=== PATIENT | female | born 1940 | race Hispanic/Latino ===

== ENCOUNTER 2017-12-23 20:45 | Inpatient (IN) | payer MEDICARE ==
[~2017-12-23] VITALS: Ht 157.5 cm; Wt 79.0 kg
[~2017-12-23 20:45] MED LIST: ATOR40TA71 PO; ESCI20TA36 PO; GABA-529 PO; IBUP-2070 PO; LEVO250T2 PO; LORA2TAB2 PO; METF10004 PO; METO50TA18 PO; NAPR-1023 PO; NITR0.4T SL; VALS160T29 PO; [UNRECOGNIZED DRUG - OTHER] IH
[2017-12-23 21:15] LABS: BASOPHILS % (AUTO) 0.9 % (0.0-5.0); EOSINOPHILS % (AUTO) 10.6 % (0.0-8.0); HEMATOCRIT 39.1 % (36-48); LYMPHOCYTES % (AUTO) 11.8 % (21.0-51.0); MEAN CORPUSCULAR HEMOGLOBIN 30.2 pg (27.0-33.0); MEAN CORPUSCULAR HGB CONC 33.9 g/dL (32.0-36.0); MONOCYTES % (AUTO) 4.3 % (3.0-13.0); NEUTROPHILS % (AUTO) 72.4 % (40.0-77.0); PLATELET COUNT (AUTO) 198 K/uL (130-400); RED BLOOD CELL COUNT(AUTO) 4.39 MIL/uL (4.00-5.50); RED CELL DISTRIBUTION WIDTH 14.6 % (11.0-15.5); WHITE BLOOD COUNT (AUTO) 11.7 K/uL (4.8-10.8)
[2017-12-23 21:18] LABS: APPEARANCE,URINE Clear (CLEAR); BILIRUBIN,URINE Negative (NEGATIVE); COLOR,URINE Yellow (YELLOW); GLUCOSE, URINE (UA) 250 mg/dL (NEGATIVE); KETONES,URINE Negative (NEGATIVE); LEUKOCYTE ESTERASE ,URINE Negative (NEGATIVE); NITRATE,URINE Negative (NEGATIVE); OCCULT BLOOD,URINE Negative (NEGATIVE); PROTEIN,URINE Negative (NEGATIVE); UROBILINOGEN,URINE 0.2 mg/dL (0.2-1.0)
[2017-12-23 21:18] LABS: CARBON DIOXIDE 24 mmol/L (21-32); CHLORIDE 102 mmol/L (101-111); CREATININE 0.9 mg/dL (0.5-1.5); GLOMERULAR FILTR. RATE CALC 65 mL/min (>60); GLUCOSE,RANDOM 330 mg/dL (70-105); POTASSIUM 4.3 mmol/L (3.5-5.1); SODIUM SERUM 139 mmol/L (136-145); UREA NITROGEN, BLOOD 9 mg/dL (7-18)
[2017-12-23 21:25] LABS: BACTERIA,URINE None Seen /HPF (None Seen); RBC,URINE None Seen /HPF (0-1); WBC,URINE None Seen /HPF (0-1)
[2017-12-23 21:26] LABS: INR 0.94 (0.85-1.15); PARTIAL THROMBOPLASTIN TIME 29.4 SEC (26.3-35.5); PROTHROMBIN TIME 9.9 SEC (9.6-11.6)
[2017-12-23] MEDS ORDERED: CEFTRIAXONE SODIUM 1 GM ONE (21:27)
[2017-12-23] MEDS ORDERED: SODIUM CHLORIDE 0.9% 50 ML IV ONE (21:27)
[2017-12-23] MEDS ORDERED: ACETAMINOPHEN 325 MG TAB ONE (21:30)
[2017-12-23] MEDS ORDERED: AZITHROMYCIN 250 MG TABLET PO ONE (21:30)
[2017-12-23 21:32] LABS: ALANINE AMINOTRANSFERASE 24 U/L (12-78); ALBUMIN 3.3 g/dL (3.5-5.0); ASPARTATE AMINOTRANSFERASE 23 U/L (10-37); BILIRUBIN,TOTAL 0.3 mg/dL (0.2-1.0); CREATINE KINASE MB 0.5 ng/mL (0.5-3.6); CREATINE KINASE, TOTAL 39 U/L (21-232); MYOGLOBIN 36 ng/mL (10-92); TROPONIN I < 0.04 ng/mL (0.00-0.06)
[2017-12-24] MEDS ORDERED: ALBUTEROL SULFATE 0.083% 2.5 MG/3 ML INH IH ONE (00:04)
[2017-12-24] MEDS ORDERED: METHYLPREDNISOLONE SOD SUCC 125MG/2ML VIAL ONE (00:08)
[2017-12-24] MEDS ORDERED: SODIUM CHLORIDE 0.9% 1000ML 1,000 ML IV ONE (02:35)
[2017-12-24] MEDS ORDERED: ENOXAPARIN SODIUM 40 MG/0.4 ML SYRINGE SQ ONE (02:35)
[2017-12-24] MEDS ORDERED: ZOSYN 3.375GM+NS 50ML 50 ML IV ONE (02:36)
[2017-12-24] MEDS ORDERED: VANCOMYCIN 1GM+NS 250ML 250 ML IV ONE (02:36)
[2017-12-24 04:48] VITALS: BP 132/71
[2017-12-24 05:00] LABS: CREATINE KINASE, TOTAL 35 U/L (21-232); MYOGLOBIN 33 ng/mL (10-92)
[2017-12-24] MEDS: SODIUM CHLORIDE 0.9% 1000ML 1,000 ML IV SCH (05:45)
[2017-12-24] MEDS ORDERED: GUAIFENESIN-CODEINE 5 ML SYRUP PO PRN (05:45)
[2017-12-24] MEDS ORDERED: DEXTROSE 50%-WATER 50 ML DISP.SYRIN IV PRN (05:45)
[2017-12-24] MEDS ORDERED: GLUCAGON 1MG KIT 1 MG ML IM PRN (05:45)
[2017-12-24] MEDS ORDERED: VANCOMYCIN PROTOCOL PER PHARMACY IV SCH (05:45)
[2017-12-24] MEDS: ZOSYN 3.375GM+NS 50ML 50 ML IV SCH ×3 (05:56→22:08)
[2017-12-24] MEDS ORDERED: VANCOMYCIN 1GM+NS 250ML 250 ML IV SCH (06:00)
[2017-12-24] MEDS: IPRATROPIUM/ALBUTEROL SULFATE 3 ML SOLUTION IH SCH ×5 (06:13→21:47)
[2017-12-24] MEDS: BUDESONIDE 0.5 MG/2 ML INH IH SCH ×2 (06:13→18:55)
[2017-12-24 06:17] LABS: BASOPHILS % (AUTO) 0.7 % (0.0-5.0); EOSINOPHILS % (AUTO) 1.3 % (0.0-8.0); HEMATOCRIT 37.6 % (36-48); LYMPHOCYTES % (AUTO) 15.1 % (21.0-51.0); MEAN CORPUSCULAR HGB CONC 33.5 g/dL (32.0-36.0); MEAN CORPUSCULAR VOLUME 89.7 fL (79-99); MONOCYTES % (AUTO) 1.1 % (3.0-13.0); NEUTROPHILS % (AUTO) 81.8 % (40.0-77.0); NUCLEATED RED BLOOD CELLS 0.1 % (0.0-0.19); PLATELET COUNT (AUTO) 194 K/uL (130-400); RED BLOOD CELL COUNT(AUTO) 4.19 MIL/uL (4.00-5.50); RED CELL DISTRIBUTION WIDTH 14.5 % (11.0-15.5); WHITE BLOOD COUNT (AUTO) 7.3 K/uL (4.8-10.8)
[2017-12-24] MEDS: INSULIN R PO SS1 SQ SCH ×4 (06:20→21:54)
[2017-12-24] MEDS ORDERED: COMPOUND IV REFRIGERATED 1 EACH IVSOLN MISC PRN (06:30)
[2017-12-24 06:34] LABS: CREATININE 0.9 mg/dL (0.5-1.5); POTASSIUM 4.4 mmol/L (3.5-5.1)
[2017-12-24 08:00] VITALS: BP 140/72
[2017-12-24] MEDS: VANCOMYCIN 1.25 GM in SODIUM CHLORIDE 0.9% 250 ML IV SCH (09:12)
[2017-12-24] MEDS: METHYLPREDNISOLONE SOD SUCC 125MG/2ML VIAL IVP SCH ×2 (09:13→21:48)
[2017-12-24] MEDS: PANTOPRAZOLE SODIUM 40 MG TABLET.DR PO SCH (09:13)
[2017-12-24] MEDS: ENOXAPARIN SODIUM 40 MG/0.4 ML SYRINGE SQ SCH (09:14)
[2017-12-24] MEDS ORDERED: LEVO25TA54 PO (09:31)
[2017-12-24] MEDS ORDERED: RANI150C4 PO (09:31)
[2017-12-24] MEDS ORDERED: DONE10TA43 PO (09:31)
[2017-12-24] MEDS ORDERED: NITR100C9 PO (09:31)
[2017-12-24] MEDS ORDERED: PROM5SYR PO (09:32)
[2017-12-24] MEDS ORDERED: GLIP5TAB11 PO (09:33)
[2017-12-24] MEDS ORDERED: IOHEXOL-350 75 ML VIAL IV ONE (10:09)
[2017-12-24 11:00] VITALS: BP 162/79
[2017-12-24 11:15] LABS: CREATINE KINASE MB < 0.5 ng/mL (0.5-3.6); CREATINE KINASE, TOTAL 39 U/L (21-232); MYOGLOBIN 28 ng/mL (10-92); TROPONIN I < 0.04 ng/mL (0.00-0.06)
[2017-12-24 16:00] VITALS: BP 141/62
[2017-12-24] MEDS: ACETAMINOPHEN 325 MG TAB PO PRN (17:41)
[2017-12-24 20:00] VITALS: BP 136/71
[2017-12-25] VITALS: BP 148/72
[2017-12-25] MEDS: IPRATROPIUM/ALBUTEROL SULFATE 3 ML SOLUTION IH SCH ×6 (02:55→21:24)
[2017-12-25] MEDS: SODIUM CHLORIDE 0.9% 1000ML 1,000 ML IV SCH (03:17)
[2017-12-25] MEDS: PANTOPRAZOLE SODIUM 40 MG TABLET.DR PO SCH (03:17)
[2017-12-25] MEDS: ACETAMINOPHEN 325 MG TAB PO PRN (03:18)
[2017-12-25 04:00] VITALS: BP 143/67
[2017-12-25 05:19] LABS: HEMATOCRIT 33.7 % (36-48); MEAN CORPUSCULAR HGB CONC 34.8 g/dL (32.0-36.0); MEAN CORPUSCULAR VOLUME 88.9 fL (79-99); PLATELET COUNT (AUTO) 187 K/uL (130-400); RED BLOOD CELL COUNT(AUTO) 3.79 MIL/uL (4.00-5.50); RED CELL DISTRIBUTION WIDTH 14.3 % (11.0-15.5); WHITE BLOOD COUNT (AUTO) 12.6 K/uL (4.8-10.8)
[2017-12-25 05:36] LABS: BAND NEUTROPHILS % (MANUAL) 2 % (0-2); LYMPHOCYTES % (MANUAL) 7 % (22-44); SEGMENTED NEUTROPHILS % 91 % (40-70)
[2017-12-25 05:37] LABS: MAN.DIFF COMMENT-IMPRESSION MANUAL DIFFERENTIAL; PLATELET MORPHOLOGY COMMENT ADEQUATE
[2017-12-25] MEDS: ZOSYN 3.375GM+NS 50ML 50 ML IV SCH ×3 (06:17→21:35)
[2017-12-25] MEDS: INSULIN R PO SS1 SQ SCH ×4 (06:22→21:42)
[2017-12-25] MEDS: BUDESONIDE 0.5 MG/2 ML INH IH SCH ×2 (06:43→17:23)
[2017-12-25 08:00] VITALS: BP 168/73
[2017-12-25 11:00] VITALS: BP 127/61
[2017-12-25] MEDS: METHYLPREDNISOLONE SOD SUCC 125MG/2ML VIAL IVP SCH ×2 (12:34→21:35)
[2017-12-25] MEDS: VANCOMYCIN 1.25 GM in SODIUM CHLORIDE 0.9% 250 ML IV SCH (12:34)
[2017-12-25] MEDS: ENOXAPARIN SODIUM 40 MG/0.4 ML SYRINGE SQ SCH (12:35)
[2017-12-25 16:00] VITALS: BP 141/73
[2017-12-25 20:00] VITALS: BP 149/79
[2017-12-26] VITALS: BP 151/76
[2017-12-26] MEDS: IPRATROPIUM/ALBUTEROL SULFATE 3 ML SOLUTION IH SCH ×6 (02:13→21:53)
[2017-12-26 04:00] VITALS: BP 148/76
[2017-12-26] MEDS: ZOSYN 3.375GM+NS 50ML 50 ML IV SCH ×3 (05:37→21:48)
[2017-12-26] MEDS: SODIUM CHLORIDE 0.9% 1000ML 1,000 ML IV SCH (05:41)
[2017-12-26] MEDS: BUDESONIDE 0.5 MG/2 ML INH IH SCH ×2 (05:59→19:12)
[2017-12-26] MEDS: INSULIN R PO SS1 SQ SCH ×4 (06:32→20:41)
[2017-12-26 07:30] VITALS: BP 162/81
[2017-12-26] MEDS: ENOXAPARIN SODIUM 40 MG/0.4 ML SYRINGE SQ SCH (08:59)
[2017-12-26] MEDS: VANCOMYCIN 1.25 GM in SODIUM CHLORIDE 0.9% 250 ML IV SCH (08:59)
[2017-12-26] MEDS: METHYLPREDNISOLONE SOD SUCC 125MG/2ML VIAL IVP SCH ×2 (09:00→20:08)
[2017-12-26] MEDS: PANTOPRAZOLE SODIUM 40 MG TABLET.DR PO SCH (09:00)
[2017-12-26 11:00] VITALS: BP 148/70
[2017-12-26] MEDS ORDERED: SODIUM CHLORIDE 3% FOR INHALATION 4 ML/AMP VIAL.NEB IH ONE (14:18)
[2017-12-26 16:00] VITALS: BP 161/77
[2017-12-26 20:00] VITALS: BP 174/84
[2017-12-26] MEDS ORDERED: [UNRECOGNIZED DRUG - OTHER] PO SCH (23:00)
[2017-12-26] MEDS ORDERED: PROMETHAZINE HCL PO SCH (23:00)
[2017-12-26] MEDS ORDERED: IBUPROFEN 600 MG TABLET PO PRN (23:00)
[2017-12-26] MEDS ORDERED: LORAZEPAM 0.5 MG TABLET PO PRN (23:00)
[2017-12-26] MEDS ORDERED: CODEINE PO SCH (23:00)
[2017-12-26] MEDS ORDERED: NITROGLYCERIN 0.4 MG SL TAB SL PRN (23:00)
[2017-12-27] VITALS: BP 157/91
[2017-12-27] MEDS: IPRATROPIUM/ALBUTEROL SULFATE 3 ML SOLUTION IH SCH ×6 (02:00→22:38)
[2017-12-27] MEDS: ZOSYN 3.375GM+NS 50ML 50 ML IV SCH ×3 (05:55→21:55)
[2017-12-27] MEDS: LEVOTHYROXINE 50 MCG TABLET PO SCH (05:56)
[2017-12-27] MEDS: BUDESONIDE 0.5 MG/2 ML INH IH SCH ×2 (06:06→17:53)
[2017-12-27] MEDS: INSULIN R PO SS1 SQ SCH ×4 (06:44→21:00)
[2017-12-27 08:30] VITALS: BP 167/82
[2017-12-27] MEDS: VALSARTAN 160 MG PO SCH (08:34)
[2017-12-27] MEDS: FAMOTIDINE 20MG TAB 20 MG TAB PO SCH (08:34)
[2017-12-27] MEDS: DONEPEZIL HCL 5 MG TAB PO SCH (10:14)
[2017-12-27] MEDS: GLIPIZIDE 5 MG TABLET PO SCH ×2 (10:14→16:17)
[2017-12-27] MEDS: LEVOFLOXACIN 750 MG TABLET PO SCH (10:15)
[2017-12-27] MEDS: PANTOPRAZOLE SODIUM 40 MG TABLET.DR PO SCH (10:15)
[2017-12-27] MEDS: METFORMIN HCL 500 MG TABLET PO SCH ×2 (10:15→16:17)
[2017-12-27] MEDS: METOPROLOL TARTRATE 50 MG TAB PO SCH ×2 (10:15→20:27)
[2017-12-27] MEDS: METHYLPREDNISOLONE SOD SUCC 125MG/2ML VIAL IVP SCH ×2 (10:15→20:26)
[2017-12-27] MEDS: ENOXAPARIN SODIUM 40 MG/0.4 ML SYRINGE SQ SCH (10:16)
[2017-12-27 12:00] VITALS: BP 170/79
[2017-12-27 16:00] VITALS: BP 152/82
[2017-12-27 19:52] VITALS: BP 174/88
[2017-12-27] MEDS ORDERED: ATORVASTATIN CALCIUM 40 MG TABLET PO SCH (21:00)
[2017-12-27] MEDS ORDERED: CITALOPRAM 20 MG TABLET PO SCH (21:00)
[2017-12-28 00:16] VITALS: BP 168/78
[2017-12-28] MEDS: IPRATROPIUM/ALBUTEROL SULFATE 3 ML SOLUTION IH SCH ×3 (02:16→10:46)
[2017-12-28 04:16] VITALS: BP 173/79
[2017-12-28] MEDS: ZOSYN 3.375GM+NS 50ML 50 ML IV SCH (05:55)
[2017-12-28] MEDS: LEVOTHYROXINE 50 MCG TABLET PO SCH (05:57)
[2017-12-28] MEDS: INSULIN R PO SS1 SQ SCH (06:31)
[2017-12-28] MEDS: BUDESONIDE 0.5 MG/2 ML INH IH SCH (07:25)
[2017-12-28 07:45] VITALS: BP 167/89
[2017-12-28] MEDS: VALSARTAN 160 MG PO SCH (09:00)
[2017-12-28] MEDS: FAMOTIDINE 20MG TAB 20 MG TAB PO SCH (09:11)
[2017-12-28] MEDS: DONEPEZIL HCL 5 MG TAB PO SCH (09:11)
[2017-12-28] MEDS: METOPROLOL TARTRATE 50 MG TAB PO SCH (09:11)
[2017-12-28] MEDS: METFORMIN HCL 500 MG TABLET PO SCH (09:11)
[2017-12-28] MEDS: GLIPIZIDE 5 MG TABLET PO SCH (09:11)
[2017-12-28] MEDS: LEVOFLOXACIN 750 MG TABLET PO SCH (09:11)
[2017-12-28] MEDS: METHYLPREDNISOLONE SOD SUCC 125MG/2ML VIAL IVP SCH (09:12)
[2017-12-28] MEDS: PANTOPRAZOLE SODIUM 40 MG TABLET.DR PO SCH (09:12)
[2017-12-28] MEDS: ENOXAPARIN SODIUM 40 MG/0.4 ML SYRINGE SQ SCH (09:13)
[2017-12-28] MEDS ORDERED: PRED20TA3 PO (11:46)
[2017-12-28] MEDS ORDERED: LEVO750T46 PO (11:46)
== END 2017-12-28 12:45 | disposition home or self-care (01) | DRG 190 ==
LOC: EDH 20:45 → EDHIP 12-24 01:11 → OBSVTOIN 12-24 01:11 → 4CH 12-24 04:40
PROVIDERS: ADMIT Internal Medicine; ATTEND Internal Medicine
DX: J44.0 Chronic obstructive pulmonary disease with (acute) lower respiratory infection (principal); J18.9 Pneumonia, unspecified organism; J20.9 Acute bronchitis, unspecified; J44.1 Chronic obstructive pulmonary disease with (acute) exacerbation; I10 Essential (primary) hypertension; J84.112 Idiopathic pulmonary fibrosis; E03.9 Hypothyroidism, unspecified; E11.9 Type 2 diabetes mellitus without complications; F32.9 Major depressive disorder, single episode, unspecified; Z99.81 Dependence on supplemental oxygen
CPT/HCPCS: 36415; 71045; 71260; 80048; 80053; 81001; 82550; 82553; 82948; 83605; 83874; 84484; 85025; 85610; 85730; 87040; 87071; 87088; 87186; 87205; 92610; 93005; 94640; 94664; 99291; J0696; J1650; J1815; J2543; J2930; J3370; J7030; Q9967

== ENCOUNTER 2018-04-28 14:00 | Emergency (ER) | payer MEDICARE ==
[~2018-04-28 14:00] MED LIST changes: +DONE10TA43 PO; -GABA-529 PO; +GLIP5TAB11 PO; -LEVO250T2 PO; +LEVO25TA54 PO; +LEVO750T46 PO; +METF-446 PO; -METF10004 PO; -NAPR-1023 PO; +PRED20TA3 PO; +PROM5SYR PO; +RANI150C4 PO; -[UNRECOGNIZED DRUG - OTHER] IH
[2018-04-28] MEDS ORDERED: PREDNISONE 20 MG TABLET ONE (14:29)
[2018-04-28] MEDS ORDERED: IPRATROPIUM/ALBUTEROL SULFATE 3 ML SOLUTION IH ONE (14:38)
[2018-04-28 15:04] LABS: BASOPHILS % (AUTO) 1.3 % (0.0-5.0); EOSINOPHILS % (AUTO) 8.1 % (0.0-8.0); HEMATOCRIT 41.4 % (36-48); LYMPHOCYTES % (AUTO) 37.2 % (21.0-51.0); MEAN CORPUSCULAR HEMOGLOBIN 30.6 pg (27.0-33.0); MEAN CORPUSCULAR HGB CONC 33.6 g/dL (32.0-36.0); MONOCYTES % (AUTO) 4.7 % (3.0-13.0); NEUTROPHILS % (AUTO) 48.7 % (40.0-77.0); PLATELET COUNT (AUTO) 176 K/uL (130-400); RED BLOOD CELL COUNT(AUTO) 4.55 MIL/uL (4.00-5.50); RED CELL DISTRIBUTION WIDTH 13.4 % (11.0-15.5); WHITE BLOOD COUNT (AUTO) 7.4 K/uL (4.8-10.8)
[2018-04-28] MEDS ORDERED: LEVOFLOXACIN 500 MG TABLET ONE (15:16)
[2018-04-28] MEDS ORDERED: BENZONATATE 100 MG CAPSULE PO ONE (15:16)
[2018-04-28 15:17] LABS: CREATININE 0.6 mg/dL (0.5-1.5); POTASSIUM 4.3 mmol/L (3.5-5.1)
[2018-04-28 15:28] LABS: B-TYPE NATRIURETIC PEPTIDE 80 pg/mL (0-100)
== END 2018-04-28 16:54 | disposition home or self-care (01) ==
LOC: EDH 14:00
DX: J44.1 Chronic obstructive pulmonary disease with (acute) exacerbation (principal); J84.10 Pulmonary fibrosis, unspecified; E78.5 Hyperlipidemia, unspecified; I10 Essential (primary) hypertension; E11.9 Type 2 diabetes mellitus without complications; F41.9 Anxiety disorder, unspecified; F32.9 Major depressive disorder, single episode, unspecified; Z87.891 Personal history of nicotine dependence; Z90.710 Acquired absence of both cervix and uterus; Z90.49 Acquired absence of other specified parts of digestive tract
CPT/HCPCS: 36415; 71046; 80048; 83880; 84484; 85025; 87804; 93005; 94640

== ENCOUNTER 2018-09-23 21:29 | Emergency (ER) | payer MEDICARE ==
[2018-09-23] MEDS ORDERED: ACETAMINOPHEN EXTRA STRENGTH 500 MG TABLET ONE (22:14)
[2018-09-23 22:17] LABS: EOSINOPHILS % (AUTO) 2.1 % (0.0-8.0); HEMATOCRIT 40.3 % (36-48); LYMPHOCYTES % (AUTO) 9.8 % (21.0-51.0); MEAN CORPUSCULAR HEMOGLOBIN 29.9 pg (27.0-33.0); MEAN CORPUSCULAR HGB CONC 33.5 g/dL (32.0-36.0); MEAN CORPUSCULAR VOLUME 89.2 fL (79-99); NEUTROPHILS % (AUTO) 79.1 % (40.0-77.0); NUCLEATED RED BLOOD CELLS 0.1 % (0.0-0.19); PLATELET COUNT (AUTO) 149 K/uL (130-400); RED BLOOD CELL COUNT(AUTO) 4.52 MIL/uL (4.00-5.50); RED CELL DISTRIBUTION WIDTH 14.3 % (11.0-15.5); WHITE BLOOD COUNT (AUTO) 5.6 K/uL (4.8-10.8)
[2018-09-23] MEDS ORDERED: SODIUM CHLORIDE 0.9% 1000ML 1,000 ML IV ONE (22:22)
[2018-09-23 22:29] LABS: APPEARANCE,URINE Clear (CLEAR); BILIRUBIN,URINE Negative (NEGATIVE); COLOR,URINE Yellow (YELLOW); GLUCOSE, URINE (UA) Negative (NEGATIVE); KETONES,URINE Trace mg/dL (NEGATIVE); LEUKOCYTE ESTERASE ,URINE Negative (NEGATIVE); NITRATE,URINE Negative (NEGATIVE); OCCULT BLOOD,URINE Negative (NEGATIVE); PROTEIN,URINE Negative (NEGATIVE); UROBILINOGEN,URINE 0.2 mg/dL (0.2-1.0)
[2018-09-23 22:44] LABS: CREATININE 0.8 mg/dL (0.5-1.5); POTASSIUM 3.7 mmol/L (3.5-5.1)
[2018-09-23 22:48] LABS: ALBUMIN 3.8 g/dL (3.5-5.0); BILIRUBIN,TOTAL 0.3 mg/dL (0.2-1.0); TOTAL PROTEIN, SERUM 7.5 g/dL (6.0-8.3)
[2018-09-23] MEDS ORDERED: IPRATROPIUM/ALBUTEROL SULFATE 3 ML SOLUTION IH ONE (23:21)
[2018-09-24] MEDS ORDERED: METHYLPREDNISOLONE SOD SUCC 125MG/2ML VIAL ONE (00:02)
== END 2018-09-24 00:17 | disposition home or self-care (01) ==
LOC: EDH 21:29
DX: J11.1 Influenza due to unidentified influenza virus with other respiratory manifestations (principal); J44.9 Chronic obstructive pulmonary disease, unspecified; J84.10 Pulmonary fibrosis, unspecified; R11.10 Vomiting, unspecified; E11.9 Type 2 diabetes mellitus without complications; I10 Essential (primary) hypertension; E07.9 Disorder of thyroid, unspecified; E78.5 Hyperlipidemia, unspecified; F32.9 Major depressive disorder, single episode, unspecified; F41.9 Anxiety disorder, unspecified; Z90.49 Acquired absence of other specified parts of digestive tract; Z90.710 Acquired absence of both cervix and uterus; Z72.0 Tobacco use
CPT/HCPCS: 36415; 71045; 80053; 81003; 83605; 85025; 87040; 87804 ×2; 94640; 96361; 96374; 99284; J2930; J7030

== ENCOUNTER 2018-09-30 12:45 | Inpatient (IN) | payer MEDICARE | END 2018-10-05 19:04 | disposition home or self-care (01) | LOC: EDH 12:45 → 4BH 10-01 13:44 → EDHIP 19:30 | DX: J44.1 Chronic obstructive pulmonary disease with (acute) exacerbation (principal); J96.21 Acute and chronic respiratory failure with hypoxia; N39.0 Urinary tract infection, site not specified; Z99.81 Dependence on supplemental oxygen; J84.10 Pulmonary fibrosis, unspecified; E11.9 Type 2 diabetes mellitus without complications ==

== ENCOUNTER 2019-03-14 20:32 | Emergency (ER) | payer MEDICARE ==
[~2019-03-14 20:32] MED LIST changes: -LEVO750T46 PO; +METO5 PO; +NITR100C4 PO; +ONDA4TAB4 PO
[2019-03-14 21:35] LABS: BASOPHILS % (AUTO) 0.7 % (0.0-5.0); EOSINOPHILS % (AUTO) 0.6 % (0.0-8.0); LYMPHOCYTES % (AUTO) 27.7 % (21.0-51.0); MEAN CORPUSCULAR HEMOGLOBIN 30.7 pg (27.0-33.0); MEAN CORPUSCULAR HGB CONC 33.6 g/dL (32.0-36.0); MEAN CORPUSCULAR VOLUME 91.1 fL (79-99); MONOCYTES % (AUTO) 10.3 % (3.0-13.0); NEUTROPHILS % (AUTO) 60.7 % (40.0-77.0); PLATELET COUNT (AUTO) 164 K/uL (130-400); RED CELL DISTRIBUTION WIDTH 13.9 % (11.0-15.5); WHITE BLOOD COUNT (AUTO) 7.7 K/uL (4.8-10.8)
[2019-03-14 21:41] LABS: CREATININE 0.8 mg/dL (0.5-1.5)
[2019-03-14 21:44] LABS: INR 0.98 (0.85-1.15); PARTIAL THROMBOPLASTIN TIME 28.9 SEC (26.3-35.5); PROTHROMBIN TIME 10.3 SEC (9.6-11.6)
[2019-03-14 21:46] LABS: ALBUMIN 3.3 g/dL (3.5-5.0); BILIRUBIN,TOTAL 0.5 mg/dL (0.2-1.0); TOTAL PROTEIN, SERUM 7.6 g/dL (6.0-8.3)
[2019-03-14] MEDS ORDERED: SODIUM CHLORIDE 0.9% 500ML 500 ML IV ONE (22:49)
[2019-03-14] MEDS ORDERED: SODIUM CHLORIDE 0.9% 1000ML 1,000 ML IV ONE (22:49)
== END 2019-03-15 01:35 | disposition home or self-care (01) ==
LOC: EDH 20:32
DX: S09.90XA Unspecified injury of head, initial encounter (principal); E11.9 Type 2 diabetes mellitus without complications; R55 Syncope and collapse; T42.4X5A Adverse effect of benzodiazepines, initial encounter; F41.9 Anxiety disorder, unspecified; F32.9 Major depressive disorder, single episode, unspecified; E78.5 Hyperlipidemia, unspecified; I10 Essential (primary) hypertension; E07.9 Disorder of thyroid, unspecified; J44.9 Chronic obstructive pulmonary disease, unspecified; W18.39XA Other fall on same level, initial encounter; Y93.89 Activity, other specified; Y92.89 Other specified places as the place of occurrence of the external cause; Y99.8 Other external cause status
CPT/HCPCS: 36415; 70450; 72125; 80053; 82550; 84484; 85025; 85610; 85730; 93005; 99285; J7030; J7040

== ENCOUNTER 2020-08-17 19:48 | Inpatient (IN) | payer OTHER, MEDICARE ==
[~2020-08-17] VITALS: Ht 162.6 cm; Wt 60.4 kg
[~2020-08-17 19:48] MED LIST changes: -ESCI20TA36 PO; +ESCI20TA38 PO
[2020-08-17] MEDS ORDERED: HEPARIN 5,000 UNIT VIAL ONE (19:55)
[2020-08-17] MEDS ORDERED: ASPIRIN 81MG CHEW TAB ONE (19:55)
[2020-08-17] MEDS ORDERED: CLOPIDOGREL 300MG TAB ONE (19:55)
[2020-08-17] MEDS ORDERED: 0.9% NACL 500ML IV.SOLN 500 ML IV ONE (19:56)
[2020-08-17 20:10] LABS: BASOPHILS % (AUTO) 1.1 % (0.0-5.0); EOSINOPHILS % (AUTO) 9.3 % (0.0-8.0); HEMATOCRIT 44.3 % (36-48); LYMPHOCYTES % (AUTO) 49.6 % (21.0-51.0); MEAN CORPUSCULAR HEMOGLOBIN 29.9 pg (27.0-33.0); MEAN CORPUSCULAR HGB CONC 32.5 g/dL (32.0-36.0); MEAN CORPUSCULAR VOLUME 92.1 fL (79-99); MONOCYTES % (AUTO) 5.9 % (3.0-13.0); PLATELET COUNT (AUTO) 198 K/uL (130-400); RED BLOOD CELL COUNT(AUTO) 4.81 MIL/uL (4.00-5.50); RED CELL DISTRIBUTION WIDTH 13.2 % (11.0-15.5); WHITE BLOOD COUNT (AUTO) 8.4 K/uL (4.8-10.8)
[2020-08-17] MEDS ORDERED: LIDOCAINE HCL 400MG/20ML VIAL ONE (20:12)
[2020-08-17] MEDS ORDERED: HEPARIN 10,000 UNIT/10ML (1,000 UNIT/ML) VIAL ONE (20:12)
[2020-08-17] MEDS ORDERED: IOHEXOL 350 MG/ML 100ML INFUS..BTL IV ONE (20:12)
[2020-08-17] MEDS ORDERED: IOHEXOL-350 50ML VIAL IV ONE (20:12)
[2020-08-17 20:14] LABS: CREATININE 0.9 mg/dL (0.5-1.5); POTASSIUM 3.7 mmol/L (3.5-5.1)
[2020-08-17] MEDS ORDERED: NITROGLYCERIN 2 MG VIAL IV ONE (20:15)
[2020-08-17 20:19] LABS: ALBUMIN 3.9 g/dL (3.5-5.0); BILIRUBIN,TOTAL 0.2 mg/dL (0.2-1.0); TOTAL PROTEIN, SERUM 7.8 g/dL (6.0-8.3)
[2020-08-17] MEDS ORDERED: METOPROLOL TARTRATE 1 MG/ML 5ML VIAL IV ONE ×2 (20:31→21:06)
[2020-08-17] MEDS ORDERED: NITROGLYCERIN 4.1 GM SPRAY TL ONE (20:37)
[2020-08-17 20:48] LABS: INR 0.97 (0.85-1.15); PROTHROMBIN TIME 10.6 SEC (9.6-11.6)
[2020-08-17 20:49] LABS: PARTIAL THROMBOPLASTIN TIME 27.8 SEC (26.3-35.5)
[2020-08-17] MEDS ORDERED: FAMOTIDINE 20MG VIAL IV SCH (21:00)
[2020-08-17] MEDS ORDERED: HYDRALAZINE 20MG/ML VIAL ONE (21:13)
[2020-08-17] MEDS ORDERED: ONDANSETRON 4MG INJ IVP PRN (21:30)
[2020-08-17] MEDS ORDERED: ONDANSETRON 4MG INJ IVP SCH (21:30)
[2020-08-17] MEDS ORDERED: TEMAZEPAM 30 MG CAP PO PRN (21:30)
[2020-08-17] MEDS ORDERED: MORPHINE 4 MG SYG ONE (21:34)
[2020-08-17 22:45] VITALS: BP 116/59
[2020-08-17 23:00] VITALS: BP 124/62
[2020-08-17 23:15] VITALS: BP 126/65
[2020-08-17 23:30] VITALS: BP 121/59
[2020-08-17 23:45] VITALS: BP 131/66
[2020-08-18] VITALS (15 sets, daily range): BP systolic 111–139; BP diastolic 53–81
[2020-08-18 03:49] LABS: HEMATOCRIT 42.6 % (36-48); MEAN CORPUSCULAR HEMOGLOBIN 29.5 pg (27.0-33.0); MEAN CORPUSCULAR HGB CONC 31.9 g/dL (32.0-36.0); MEAN CORPUSCULAR VOLUME 92.4 fL (79-99); RED BLOOD CELL COUNT(AUTO) 4.61 MIL/uL (4.00-5.50); RED CELL DISTRIBUTION WIDTH 13.3 % (11.0-15.5); WHITE BLOOD COUNT (AUTO) 10.8 K/uL (4.8-10.8)
[2020-08-18 04:12] LABS: CREATININE 0.6 mg/dL (0.5-1.5); POTASSIUM 3.9 mmol/L (3.5-5.1); THYROID STIMULATING HORMONE 2.14 uIU/mL (0.36-3.74)
[2020-08-18] MEDS: LEVOTHYROXINE 25 MCG TABLET PO SCH (06:46)
[2020-08-18] MEDS: METOPROLOL TARTRATE 25 MG TAB PO SCH ×2 (08:40→21:00)
[2020-08-18] MEDS: ASPIRIN 81MG CHEW TAB PO SCH (08:40)
[2020-08-18] MEDS: CLOPIDOGREL 75MG TAB PO SCH (08:40)
[2020-08-18] MEDS: ATORVASTATIN 40 MG TABLET PO SCH (08:40)
[2020-08-18] MEDS: PANTOPRAZOLE 40 MG TAB DR PO SCH (08:40)
[2020-08-18] MEDS: LOSARTAN 50 MG TABLET PO SCH (08:40)
[2020-08-18] MEDS ORDERED: ACETAMINOPHEN 325 MG TAB PO PRN (11:30)
[2020-08-18] MEDS: IBUPROFEN 200 MG TAB PO PRN (12:55)
[2020-08-19 00:12] VITALS: BP_SYST 120; BP_SYST 128; BP_DIAS 68
[2020-08-19 03:52] LABS: HEMATOCRIT 40.4 % (36-48); MEAN CORPUSCULAR HEMOGLOBIN 30.2 pg (27.0-33.0); MEAN CORPUSCULAR HGB CONC 32.7 g/dL (32.0-36.0); MEAN CORPUSCULAR VOLUME 92.4 fL (79-99); RED BLOOD CELL COUNT(AUTO) 4.37 MIL/uL (4.00-5.50); RED CELL DISTRIBUTION WIDTH 13.5 % (11.0-15.5); WHITE BLOOD COUNT (AUTO) 8.7 K/uL (4.8-10.8)
[2020-08-19 04:09] VITALS: BP 123/62
[2020-08-19 04:10] LABS: CREATININE 0.9 mg/dL (0.5-1.5); POTASSIUM 3.9 mmol/L (3.5-5.1)
[2020-08-19] MEDS: LEVOTHYROXINE 25 MCG TABLET PO SCH (06:07)
[2020-08-19] MEDS: IBUPROFEN 200 MG TAB PO PRN ×2 (06:13→16:49)
[2020-08-19] MEDS: ASPIRIN 81MG CHEW TAB PO SCH (08:20)
[2020-08-19] MEDS: METOPROLOL TARTRATE 25 MG TAB PO SCH (08:20)
[2020-08-19] MEDS: CLOPIDOGREL 75MG TAB PO SCH (08:21)
[2020-08-19] MEDS: LOSARTAN 50 MG TABLET PO SCH (08:21)
[2020-08-19] MEDS: ATORVASTATIN 40 MG TABLET PO SCH (08:21)
[2020-08-19] MEDS: PANTOPRAZOLE 40 MG TAB DR PO SCH (08:21)
[2020-08-19 08:26] VITALS: BP 138/68
[2020-08-19 12:13] VITALS: BP 126/57
[2020-08-19] MEDS ORDERED: CLOP75TA14 PO (12:57)
[2020-08-19] MEDS ORDERED: LEVO25TA9 PO (12:57)
[2020-08-19] MEDS ORDERED: METO25 PO (12:57)
[2020-08-19] MEDS ORDERED: ATOR40TA69 PO (12:57)
[2020-08-19] MEDS ORDERED: ASPI-1005 PO (12:57)
[2020-08-19] MEDS ORDERED: LOSA50TA2 PO (12:57)
== END 2020-08-19 17:42 | disposition home or self-care (01) | DRG 246 ==
LOC: EDH 19:48 → EDHIP 19:52 → OBSVTOIN 19:52 → 2CH 22:25 → 4DH 08-18 05:53
PROVIDERS: ADMIT Internal Medicine Critical Care Medicine; ATTEND Internal Medicine Critical Care Medicine
PROC: 027034Z Dilation of Coronary Artery, One Artery with Drug-eluting Intraluminal Device, Percutaneous Approach (ICD-10-PCS; principal; 2020-08-17)
PROC: 4A023N7 Measurement of Cardiac Sampling and Pressure, Left Heart, Percutaneous Approach (ICD-10-PCS; 2020-08-17)
PROC: B2111ZZ Fluoroscopy of Multiple Coronary Arteries using Low Osmolar Contrast (ICD-10-PCS; 2020-08-17)
DX: I21.09 ST elevation (STEMI) myocardial infarction involving other coronary artery of anterior wall (principal); I50.31 Acute diastolic (congestive) heart failure; J84.10 Pulmonary fibrosis, unspecified; J44.9 Chronic obstructive pulmonary disease, unspecified; I11.0 Hypertensive heart disease with heart failure; E03.9 Hypothyroidism, unspecified; E11.9 Type 2 diabetes mellitus without complications; E78.5 Hyperlipidemia, unspecified; F32.9 Major depressive disorder, single episode, unspecified; F41.9 Anxiety disorder, unspecified; Z79.02 Long term (current) use of antithrombotics/antiplatelets; Z80.1 Family history of malignant neoplasm of trachea, bronchus and lung; Z82.5 Family history of asthma and other chronic lower respiratory diseases; Z86.73 Personal history of transient ischemic attack (TIA), and cerebral infarction without residual deficits; Z87.891 Personal history of nicotine dependence; Z90.49 Acquired absence of other specified parts of digestive tract; Z90.710 Acquired absence of both cervix and uterus; Z79.899 Other long term (current) drug therapy; Z79.84 Long term (current) use of oral hypoglycemic drugs
CPT/HCPCS: 36415; 71045; 80048; 80053; 80061; 84443; 84484; 85025; 85027; 85347; 85610; 85730; 92610; 93005; 93306; 93356; 93458; C1760; C1769; C1887; C1894; C9600; G0378; J0360; J1644; J2270; J2405; J3490; J7040; Q9967

== ENCOUNTER 2020-09-04 19:43 | Inpatient (IN) | payer OTHER, MEDICARE ==
[~2020-09-04] VITALS: Ht 193 cm; Wt 48.7 kg
[~2020-09-04 19:43] MED LIST changes: +ASPI-1005 PO; +ATOR40TA69 PO; +CLOP75TA14 PO; +LEVO25TA9 PO; +LOSA50TA2 PO; +METO25 PO
[2020-09-04] MEDS ORDERED: IBUPROFEN 600 MG TABLET ONE (20:03)
[2020-09-04 20:11] LABS: BASOPHILS % (AUTO) 0.5 % (0.0-5.0); EOSINOPHILS % (AUTO) 5.1 % (0.0-8.0); HEMATOCRIT 43.5 % (36-48); LYMPHOCYTES % (AUTO) 18.7 % (21.0-51.0); MEAN CORPUSCULAR HEMOGLOBIN 29.9 pg (27.0-33.0); MEAN CORPUSCULAR VOLUME 93.5 fL (79-99); MONOCYTES % (AUTO) 3.1 % (3.0-13.0); PLATELET COUNT (AUTO) 188 K/uL (130-400); RED BLOOD CELL COUNT(AUTO) 4.65 MIL/uL (4.00-5.50); RED CELL DISTRIBUTION WIDTH 13.3 % (11.0-15.5); WHITE BLOOD COUNT (AUTO) 9.3 K/uL (4.8-10.8)
[2020-09-04 20:24] LABS: ABG BASE EXCESS -1.4 mmol/L (-2.0-3.0); ABG OXYGEN SATURATION 84.9 % (95.0-99.0); ABG PCO2 34 mmHg (32-45)
[2020-09-04 20:27] LABS: CARBON DIOXIDE 29 mmol/L (21-32); CHLORIDE 101 mmol/L (101-111); CREATININE 0.9 mg/dL (0.5-1.5); GLOMERULAR FILTR. RATE CALC 64 mL/min (>60); GLUCOSE,RANDOM 153 mg/dL (70-105); SODIUM SERUM 139 mmol/L (136-145); UREA NITROGEN, BLOOD 12 mg/dL (7-18)
[2020-09-04 20:32] LABS: INR 1.1 (0.85-1.15); PROTHROMBIN TIME 11.9 SEC (9.6-11.6)
[2020-09-04 20:33] LABS: PARTIAL THROMBOPLASTIN TIME 28.6 SEC (26.3-35.5)
[2020-09-04 20:37] LABS: ALANINE AMINOTRANSFERASE 10 U/L (12-78); ALBUMIN 3.9 g/dL (3.5-5.0); ASPARTATE AMINOTRANSFERASE 16 U/L (10-37); BILIRUBIN,TOTAL 0.5 mg/dL (0.2-1.0); CREATINE KINASE, TOTAL 53 U/L (21-232); MYOGLOBIN 37 ng/mL (10-92); TOTAL PROTEIN, SERUM 8.1 g/dL (6.0-8.3); TROPONIN I < 0.04 ng/mL (0.00-0.06)
[2020-09-04 20:43] LABS: APPEARANCE,URINE CLOUDY (CLEAR); BILIRUBIN,URINE NEGATIVE (NEGATIVE); COLOR,URINE YELLOW (YELLOW); GLUCOSE, URINE (UA) NEGATIVE (NEGATIVE); KETONES,URINE NEGATIVE (NEGATIVE); LEUKOCYTE ESTERASE ,URINE TRACE (NEGATIVE); NITRATE,URINE POSITIVE (NEGATIVE); OCCULT BLOOD,URINE TRACE-INTACT (NEGATIVE); PH,URINE 6.5 (5.0-8.0); PROTEIN,URINE TRACE mg/dL (NEGATIVE); UROBILINOGEN,URINE 0.2 mg/dL (0.2-1.0)
[2020-09-04] MEDS ORDERED: HYDROCORTISONE SOD SUCCINATE 100 MG/2 ML VIAL ONE (20:53)
[2020-09-04] MEDS ORDERED: ZOSYN 3.375GM+NS 50ML 50 ML IV ONE (20:54)
[2020-09-04 21:03] LABS: BACTERIA,URINE Moderate /HPF (None Seen)
[2020-09-04 21:04] LABS: SQUAMOUS EPITHELIAL CELL,UR Few /HPF (0-2)
[2020-09-04] MEDS ORDERED: DEXAMETHASONE SOD PHOSPHATE 4 MG/ML 1ML VIAL IVP SCH (23:00)
[2020-09-04] MEDS ORDERED: ERGOCALCIFEROL (VITAMIN D2) 50,000 UNIT CAPSULE PO ONE (23:00)
[2020-09-05] VITALS (7 sets, daily range): BP systolic 99–158; BP diastolic 55–75
[2020-09-05] MEDS ORDERED: ERGOCALCIFEROL (VITAMIN D2) 50,000 UNIT CAPSULE ONE (00:25)
[2020-09-05 06:41] LABS: BASOPHILS % (AUTO) 0.5 % (0.0-5.0); EOSINOPHILS % (AUTO) 0.3 % (0.0-8.0); HEMATOCRIT 38.4 % (36-48); LYMPHOCYTES % (AUTO) 19.1 % (21.0-51.0); MEAN CORPUSCULAR HEMOGLOBIN 30.1 pg (27.0-33.0); MEAN CORPUSCULAR HGB CONC 32.3 g/dL (32.0-36.0); MEAN CORPUSCULAR VOLUME 93.2 fL (79-99); MONOCYTES % (AUTO) 4.2 % (3.0-13.0); NEUTROPHILS % (AUTO) 75.7 % (40.0-77.0); PLATELET COUNT (AUTO) 168 K/uL (130-400); RED BLOOD CELL COUNT(AUTO) 4.12 MIL/uL (4.00-5.50); RED CELL DISTRIBUTION WIDTH 13.2 % (11.0-15.5); WHITE BLOOD COUNT (AUTO) 6.2 K/uL (4.8-10.8)
[2020-09-05 07:03] LABS: ALBUMIN 3.1 g/dL (3.5-5.0); BILIRUBIN,TOTAL 0.4 mg/dL (0.2-1.0); CREATININE 0.8 mg/dL (0.5-1.5); POTASSIUM 3.8 mmol/L (3.5-5.1); TOTAL PROTEIN, SERUM 6.9 g/dL (6.0-8.3)
[2020-09-05] MEDS ORDERED: ACETYLCYSTEINE 600 MG CAPSULE PO SCH (09:00)
[2020-09-05] MEDS: ENOXAPARIN SODIUM 40 MG/0.4 ML SYRINGE SQ SCH (09:00)
[2020-09-05] MEDS: ASCORBIC ACID 500 MG TAB PO SCH (09:00)
[2020-09-05] MEDS: ZOSYN 3.375GM+NS 50ML 50 ML IV SCH ×3 (09:01→20:53)
[2020-09-05] MEDS: ZINC SULFATE 220 CAPSULE PO SCH (09:02)
[2020-09-05] MEDS ORDERED: NITROGLYCERIN 0.4 MG SL TAB SL PRN (12:15)
[2020-09-05] MEDS ORDERED: LORAZEPAM 2 MG TABLET PO PRN (12:15)
[2020-09-05] MEDS ORDERED: ALBUTEROL INHALER 90MCG/INH IH PRN (12:30)
[2020-09-05] MEDS: SOLU-MEDROL 40MG VIAL IVP SCH ×2 (13:34→20:53)
[2020-09-05] MEDS: ASPIRIN 81MG CHEW TAB PO SCH (13:34)
[2020-09-05] MEDS: LOSARTAN 50 MG TABLET PO SCH (13:35)
[2020-09-05] MEDS: CLOPIDOGREL 75MG TAB PO SCH (13:35)
[2020-09-05] MEDS: METOPROLOL TARTRATE 25 MG TAB PO SCH (20:54)
[2020-09-05] MEDS: FAMOTIDINE 20MG TAB PO SCH (20:54)
[2020-09-05] MEDS ORDERED: ATORVASTATIN 40 MG TABLET PO SCH (21:00)
[2020-09-06 04:18] VITALS: BP 132/72
[2020-09-06 04:28] LABS: BASOPHILS % (AUTO) 0.5 % (0.0-5.0); EOSINOPHILS % (AUTO) 0.3 % (0.0-8.0); LYMPHOCYTES % (AUTO) 23.3 % (21.0-51.0); MEAN CORPUSCULAR HEMOGLOBIN 29.7 pg (27.0-33.0); MEAN CORPUSCULAR HGB CONC 32.4 g/dL (32.0-36.0); MEAN CORPUSCULAR VOLUME 91.8 fL (79-99); MONOCYTES % (AUTO) 6.1 % (3.0-13.0); NEUTROPHILS % (AUTO) 69.6 % (40.0-77.0); PLATELET COUNT (AUTO) 155 K/uL (130-400); RED BLOOD CELL COUNT(AUTO) 4.14 MIL/uL (4.00-5.50); RED CELL DISTRIBUTION WIDTH 13.1 % (11.0-15.5); WHITE BLOOD COUNT (AUTO) 6.2 K/uL (4.8-10.8)
[2020-09-06 04:53] LABS: ALBUMIN 2.9 g/dL (3.5-5.0); BILIRUBIN,TOTAL 0.4 mg/dL (0.2-1.0); CREATININE 0.8 mg/dL (0.5-1.5); POTASSIUM 3.7 mmol/L (3.5-5.1); TOTAL PROTEIN, SERUM 6.7 g/dL (6.0-8.3)
[2020-09-06] MEDS: ZOSYN 3.375GM+NS 50ML 50 ML IV SCH ×2 (05:26→12:00)
[2020-09-06] MEDS: SOLU-MEDROL 40MG VIAL IVP SCH ×2 (05:26→11:56)
[2020-09-06] MEDS ORDERED: LEVOTHYROXINE 25 MCG TABLET PO SCH (06:30)
[2020-09-06] MEDS ORDERED: FUROSEMIDE 20MG VIAL IV SCH (07:45)
[2020-09-06 08:00] VITALS: BP 138/58
[2020-09-06] MEDS: ASPIRIN 81MG CHEW TAB PO SCH (08:00)
[2020-09-06] MEDS: CLOPIDOGREL 75MG TAB PO SCH (08:01)
[2020-09-06] MEDS: FAMOTIDINE 20MG TAB PO SCH (08:01)
[2020-09-06] MEDS: ASCORBIC ACID 500 MG TAB PO SCH (08:01)
[2020-09-06] MEDS: ENOXAPARIN SODIUM 40 MG/0.4 ML SYRINGE SQ SCH (08:01)
[2020-09-06] MEDS: METOPROLOL TARTRATE 25 MG TAB PO SCH (08:01)
[2020-09-06] MEDS: LOSARTAN 50 MG TABLET PO SCH (08:02)
[2020-09-06] MEDS: ZINC SULFATE 220 CAPSULE PO SCH (08:02)
[2020-09-06 12:00] VITALS: BP 122/57
[2020-09-06 16:00] VITALS: BP 113/58
== END 2020-09-06 18:25 | disposition home or self-care (01) | DRG 871 ==
LOC: EDH 19:43 → EDHIP 22:38 → OBSVTOIN 22:38 → 2AH 09-05 02:00
PROVIDERS: ADMIT Internal Medicine Critical Care Medicine; ATTEND Internal Medicine Critical Care Medicine
DX: A41.50 Gram-negative sepsis, unspecified (principal); E43 Unspecified severe protein-calorie malnutrition; J18.9 Pneumonia, unspecified organism; N30.00 Acute cystitis without hematuria; J96.11 Chronic respiratory failure with hypoxia; E03.9 Hypothyroidism, unspecified; E11.9 Type 2 diabetes mellitus without complications; E78.5 Hyperlipidemia, unspecified; F19.90 Other psychoactive substance use, unspecified, uncomplicated; F32.9 Major depressive disorder, single episode, unspecified; R53.81 Other malaise; I10 Essential (primary) hypertension; F41.8 Other specified anxiety disorders; I25.10 Atherosclerotic heart disease of native coronary artery without angina pectoris; H91.90 Unspecified hearing loss, unspecified ear; J44.9 Chronic obstructive pulmonary disease, unspecified; J84.10 Pulmonary fibrosis, unspecified; Z20.822 Contact with and (suspected) exposure to COVID-19; Z95.5 Presence of coronary angioplasty implant and graft; Z86.73 Personal history of transient ischemic attack (TIA), and cerebral infarction without residual deficits; Z83.3 Family history of diabetes mellitus; I25.2 Old myocardial infarction; Z88.6 Allergy status to analgesic agent; Z79.899 Other long term (current) drug therapy
CPT/HCPCS: 36415; 36600; 71045; 80053; 81001; 82550; 82803; 82948; 83605; 83874; 83880; 84145; 84484; 85025; 85610; 85730; 86140; 86900; 86901; 87040; 87077; 87088; 87186; 87426; 87804; 93005; 99291; G0378; J1650; J1720; J1940; J2543; J2920; U0003

== ENCOUNTER 2021-08-21 20:37 | Emergency (ER) | payer OTHER, MEDICARE ==
[~2021-08-21] VITALS: Ht 160 cm; Wt 56.2 kg
[~2021-08-21 20:37] MED LIST changes: -ATOR40TA71 PO; -GLIP5TAB11 PO; -IBUP-2070 PO; -LEVO25TA54 PO; -METO50TA18 PO; -NITR100C4 PO; -RANI150C4 PO; -VALS160T29 PO
[2021-08-21] MEDS ORDERED: IPRATROPIUM/ALBUTEROL SULFATE 3 ML SOLUTION IH ONE ×2 (21:30→22:57)
[2021-08-21] MEDS ORDERED: SOLU-MEDROL 125MG VIAL IVP ONE (21:30)
[2021-08-21] MEDS ORDERED: SOLU-MEDROL 125MG VIAL ONE (21:36)
[2021-08-21 21:44] LABS: APPEARANCE,URINE Clear (CLEAR); BILIRUBIN,URINE Negative (NEGATIVE); COLOR,URINE Yellow (YELLOW); GLUCOSE, URINE (UA) Negative (NEGATIVE); KETONES,URINE Negative (NEGATIVE); LEUKOCYTE ESTERASE ,URINE Trace (NEGATIVE); NITRATE,URINE Negative (NEGATIVE); OCCULT BLOOD,URINE Negative (NEGATIVE); PROTEIN,URINE Negative (NEGATIVE); UROBILINOGEN,URINE 0.2 mg/dL (0.2-1.0)
[2021-08-21 21:53] LABS: RBC,URINE 0-1 /HPF (0-1)
[2021-08-21 21:54] LABS: BACTERIA,URINE Few /HPF (None Seen); SQUAMOUS EPITHELIAL CELL,UR Few /HPF (0-2)
[2021-08-21 21:57] LABS: BASOPHILS % (AUTO) 1.3 % (0.0-5.0); EOSINOPHILS % (AUTO) 14.2 % (0.0-8.0); HEMATOCRIT 44.4 % (36-48); LYMPHOCYTES % (AUTO) 32.8 % (21.0-51.0); MEAN CORPUSCULAR HEMOGLOBIN 29.7 pg (27.0-33.0); MEAN CORPUSCULAR HGB CONC 31.3 g/dL (32.0-36.0); MEAN CORPUSCULAR VOLUME 94.9 fL (79-99); MONOCYTES % (AUTO) 6.2 % (3.0-13.0); NEUTROPHILS % (AUTO) 45.2 % (40.0-77.0); PLATELET COUNT (AUTO) 228 K/uL (130-400); RED BLOOD CELL COUNT(AUTO) 4.68 MIL/uL (4.00-5.50); RED CELL DISTRIBUTION WIDTH 13.6 % (11.0-15.5); WHITE BLOOD COUNT (AUTO) 7.9 K/uL (4.8-10.8)
[2021-08-21 22:06] LABS: CREATININE 0.8 mg/dL (0.5-1.5); POTASSIUM 3.8 mmol/L (3.5-5.1)
[2021-08-21 22:11] LABS: ALBUMIN 3.8 g/dL (3.5-5.0); BILIRUBIN,TOTAL 0.2 mg/dL (0.2-1.0)
[2021-08-21 23:30] VITALS: BP 158/77
[2021-08-22] MEDS ORDERED: IPRATROPIUM/ALBUTEROL SULFATE 3 ML SOLUTION IH ONE
== END 2021-08-22 00:13 | disposition home or self-care (01) ==
LOC: EDH 20:37
DX: J84.10 Pulmonary fibrosis, unspecified (principal); R05.9 Cough, unspecified; R06.2 Wheezing; I10 Essential (primary) hypertension; I25.2 Old myocardial infarction; E11.9 Type 2 diabetes mellitus without complications; K21.9 Gastro-esophageal reflux disease without esophagitis; E78.00 Pure hypercholesterolemia, unspecified; Z20.822 Contact with and (suspected) exposure to COVID-19; Z90.49 Acquired absence of other specified parts of digestive tract; Z90.710 Acquired absence of both cervix and uterus; Z95.0 Presence of cardiac pacemaker; Z88.6 Allergy status to analgesic agent; Z79.82 Long term (current) use of aspirin; Z79.84 Long term (current) use of oral hypoglycemic drugs; Z79.899 Other long term (current) drug therapy
CPT/HCPCS: 36415; 71045; 80053; 81001; 85025; 87635; 87880; 94640 ×2; 96374; 99285; C9803; J2930

== ENCOUNTER 2022-04-26 13:10 | Emergency (ER) | payer OTHER, MEDICARE ==
[~2022-04-26] VITALS: Ht 162.6 cm; Wt 54.4 kg
[2022-04-26 13:14] VITALS: BP 147/58
[2022-04-26] MEDS ORDERED: AMOX1TAB16 PO (13:30)
[2022-04-26] MEDS ORDERED: TETANUS/DIPHTHERIA TOXOID [ADULT] 0.5 ML VIAL IM ONE ×2 (13:39→14:00)
== END 2022-04-26 14:29 | disposition home or self-care (01) ==
LOC: EDH 13:10
DX: S61.250A Open bite of right index finger without damage to nail, initial encounter (principal); E11.9 Type 2 diabetes mellitus without complications; K21.9 Gastro-esophageal reflux disease without esophagitis; E78.00 Pure hypercholesterolemia, unspecified; I10 Essential (primary) hypertension; I25.2 Old myocardial infarction; Z90.89 Acquired absence of other organs; Z98.890 Other specified postprocedural states; Z88.6 Allergy status to analgesic agent; Z79.899 Other long term (current) drug therapy; Z79.82 Long term (current) use of aspirin; Z79.84 Long term (current) use of oral hypoglycemic drugs; W55.01XA Bitten by cat, initial encounter; Y93.89 Activity, other specified; Y92.89 Other specified places as the place of occurrence of the external cause; Y99.8 Other external cause status
CPT/HCPCS: 90471; 90714

== ENCOUNTER 2023-10-01 15:26 | Emergency (ER) | payer OTHER, MEDICARE ==
[~2023-10-01] VITALS: Ht 162.6 cm; Wt 50.8 kg
[~2023-10-01 15:26] MED LIST changes: +AEC81 PO; -ASPI-1005 PO; -ATOR40TA69 PO; +ATOR40TA71 PO; +BENZ200C53 PO; +CALC3.8S NS; +CLOP-31 PO; -CLOP75TA14 PO; +IBUP-2076 PO; +IPRA3AMP24 IH; +LOSA25TA41 PO; -LOSA50TA2 PO; +MEMA5TAB42 PO; -METO5 PO; -NITR0.4T SL; -ONDA4TAB4 PO; +PANT40TA54 PO; -PRED20TA3 PO; +PREG75 PO; -PROM5SYR PO; +[UNRECOGNIZED DRUG - CODE] PO
[2023-10-01] MEDS ORDERED: CEPH500B PO (17:43)
[2023-10-01 18:26] VITALS: BP 138/86; PULSE 68; RESP 18; O2SAT 98
[2023-10-01] MEDS: CEPHALEXIN 500 MG CAPSULE PO ONE (18:41)
[2023-10-01] MEDS: ACETAMINOPHEN 500 MG TABLET PO ONE (18:41)
== END 2023-10-01 18:44 | disposition home or self-care (01) ==
LOC: EDH 15:26
DX: S60.562A Insect bite (nonvenomous) of left hand, initial encounter (principal); I10 Essential (primary) hypertension; E11.9 Type 2 diabetes mellitus without complications; Z79.82 Long term (current) use of aspirin; Z79.84 Long term (current) use of oral hypoglycemic drugs; Z79.899 Other long term (current) drug therapy; Z98.890 Other specified postprocedural states; Z88.8 Allergy status to other drugs, medicaments and biological substances; X58.XXXA Exposure to other specified factors, initial encounter; Y93.89 Activity, other specified; Y92.89 Other specified places as the place of occurrence of the external cause; Y99.8 Other external cause status